=== PATIENT | male | born 1965 | race American Indian/Alaskan Native ===

== ENCOUNTER 2016-07-28 13:51 | Emergency (ER) | payer MEDICAID ==
[2016-07-28 13:56] VITALS: PULSE 81; RESP 18; TEMP 98; O2SAT 96; BMI 25.0
[2016-07-28 14:15] VITALS: BP 110/71
--- NOTE | 2016-07-28 14:20 | C.PDOC ---
History Of Present Illness 50 yo male come in for evaluation of intermittent , localized right lateral thigh pain for past few weeks. Otherwise, pt denies known trauma or injury, fever, chills, back pain, abd. pain, V/D, weakness, deformity, sensory or vascular deficits to Right leg, denies calf pain. Ambulate to ED for evaluation , not in nay apparent distress. Time Seen by Provider: 07/28/16 14:00 Chief Complaint (Nursing): Lower Extremity Problem/Injury History Per: Patient Onset/Duration Of Symptoms: Intermittent Episodes Past Medical History Reviewed: Historical Data, Nursing Documentation, Vital Signs Vital Signs: Last Vital Signs Temp 98 F 07/28/16 13:56 Pulse 81 07/28/16 13:56 Resp 18 07/28/16 13:56 BP 110/71 07/28/16 13:56 Pulse Ox 96 07/28/16 13:56 - Medical History PMH: Bronchitis Denies: Chronic Kidney Disease Family History: States: No Known Family Hx - Social History Hx Tobacco Use: Yes Hx Alcohol Use: Yes Hx Substance Use: Yes (DAILY HEROINE USE) - Immunization History Hx Tetanus Toxoid Vaccination: No Hx Influenza Vaccination: Yes Hx Pneumococcal Vaccination: No Review Of Systems Except As Marked, All Systems Reviewed And Found Negative. Constitutional: Negative for: Fever, Chills ENT: Negative for: Throat Pain Gastrointestinal: Negative for: Nausea, Vomiting, Abdominal Pain, Diarrhea Genitourinary: Negative for: Dysuria, Frequency, Incontinence Musculoskeletal: Positive for: Leg Pain. Negative for: Neck Pain, Back Pain Skin: Negative for: Rash, Bruising Neurological: Negative for: Weakness, Numbness Physical Exam - Physical Exam Appears: Well, Non-toxic, No Acute Distress Skin: Normal Color, Warm, No Rash, No Ecchymosis Extremity: Normal ROM, Tenderness (reproducible mild tenderness along lateral/ distal aspect Left femur. No palpable deformity, no edema, no skin changes.), No Calf Tenderness (Right), No Deformity, No Swelling Extremity: Bilateral: Atraumatic Neurological/Psych: Oriented x3, Normal Speech, Normal Motor, Normal Sensation, Normal Reflexes ED Course And Treatment O2 Sat by Pulse Oximetry: 96 Progress Note: On re-eavluation, p[t is afebrile, hemodynamicaly stable. AMbulatory in ED with stable gait. RLE: FAROM, no neurovascular deficits, no calf tenderness. NO ecchymoses, no rash. neurologicaly intact. Pt has clinical findings c/w Right leg cramping/sprain. Pt advised. ref. to F/U with PMD In 2-3 days for re-eavl. return if any new changes. Disposition Counseled Patient/Family Regarding: Diagnosis, Need For Followup - Disposition Referrals: Faisal Amaro MD [Staff Provider] - Disposition: HOME/ ROUTINE Disposition Time: 14:18 Condition: STABLE Additional Instructions: Light duty to Right leg Avoid prolong walking Ibuprofen as need fora pin Ice to painful area leg stretching Follow up with Orthopedist in 2-3 days for re-evaluation as need Return to ED if any worsening or new changes. Prescriptions: Ibuprofen [Motrin] 600 mg PO Q6 #20 tab Instructions: Leg Cramps (ED) - Clinical Impression Clinical Impression: Leg cramping
== END 2016-07-28 14:33 | disposition home or self-care (01) ==
LOC: C.ER 13:51
DX: R25.2 Cramp and spasm (principal)